=== PATIENT | male | born 2005 | race American Indian/Alaskan Native ===

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

== ENCOUNTER 2023-01-25 18:34 | Emergency (ER) | payer BC, MEDICAID ==
[2023-01-25 19:01] VITALS: BP 141/95; PULSE 75
== END 2023-01-25 19:39 | disposition home or self-care (01) ==
LOC: DL.ED 18:34
DX: S46.911A Strain of unspecified muscle, fascia and tendon at shoulder and upper arm level, right arm, initial encounter (principal); S40.011A Contusion of right shoulder, initial encounter; X50.1XXA Overexertion from prolonged static or awkward postures, initial encounter
CPT/HCPCS: 73030-RT; 99282; 99283

== ENCOUNTER 2024-02-28 17:37 | Emergency (ER) | payer OTHER ==
[2024-02-28 18:04] VITALS: BP 126/78; PULSE 60
[2024-02-28 19:33] LABS: APPEARANCE,URINE CLEAR (CLEAR); BILIRUBIN,URINE NEGATIVE (NEGATIVE); COLOR,URINE YELLOW (YELLOW); GLUCOSE,URINE NEGATIVE (NEGATIVE); KETONES,URINE NEGATIVE (NEGATIVE); LEUKOCYTE ESTERASE,URINE NEGATIVE (NEGATIVE); NITRITE,URINE NEGATIVE (NEGATIVE); OCCULT BLOOD,URINE NEGATIVE (NEGATIVE); PH,URINE 7.5 (5.0-9.0); PROTEIN,URINE NEGATIVE (NEGATIVE); UROBILINOGEN,URINE 0.2 mg/dL (0.2-1.0)
[2024-02-28] MEDS: Sodium Chloride 0.9% 10 ML Syringe FLUSH PRN (19:36)
[2024-02-28 19:43] LABS: BASOPHILS PERCENT AUTO 0.7 % (0.0-1.0); EOSINOPHILS PERCENT AUTO 6.3 % (1.0-3.0); HEMATOCRIT 45.8 % (40.0-54.0); HEMOGLOBIN 15.9 g/dL (14.0-18.0); LYMPHOCYTES PERCENT AUTO 21.9 % (20.5-50.1); MEAN CORPUSCULAR HGB CONC 34.7 g/dL (33.0-35.0); MEAN CORPUSCULAR VOLUME 86.4 fL (80-100); MONOCYTES PERCENT AUTO 9.1 % (2-8); PLATELET COUNT,PLT 242 10^3/uL (150-450); WHITE BLOOD CELL COUNT,WBC 8.1 10^3/uL (5.0-10.0)
[2024-02-28] MEDS: Ketorolac 30 MG/ML SDV IVPUSH ONE (19:44)
[2024-02-28] MEDS: Sodium Chloride 0.9% 1,000 ML IV ONE (19:45)
[2024-02-28 20:11] LABS: A/G RATIO 1.1; ALBUMIN 4.3 g/dL (3.4-5.0); ANION GAP 12.4 mEq/L (7-13); BILIRUBIN TOTAL 0.6 mg/dL (0.2-1.0); BUN/CREATININE RATIO 8.8 (No establ ref range); CALCIUM 9.5 mg/dL (8.5-10.1); CREATININE 1.13 mg/dL (0.70-1.30); EST CRCL DRUG DOSING (CG) 100.88 mL/min; POTASSIUM,K 4.4 mmol/L (3.5-5.1); PROTEIN TOTAL,TP 8.1 g/dL (6.4-8.2)
[2024-02-28] MEDS: Iopamidol 612 MG/ML 100 ML Bottle IVPUSH ONE (22:23)
== END 2024-02-28 23:38 ==
LOC: DL.ED 17:37
DX: M54.2 Cervicalgia (principal); K62.5 Hemorrhage of anus and rectum; Z90.49 Acquired absence of other specified parts of digestive tract; V28.09XA Other motorcycle driver injured in noncollision transport accident in nontraffic accident, initial encounter
CPT/HCPCS: 36415; 70491; 71260; 72125; 74177; 80053; 81003; 82272; 82550; 83605; 83735; 84484; 85025; 85730; 96361; 96374; 99284; 99285; J1885; J7030; Q9967; J3490

== ENCOUNTER 2024-10-02 02:21 | Emergency (ER) | payer OTHER ==
[2024-10-02 02:36] VITALS: PULSE 65
[2024-10-02] MEDS: Bacitracin Oint 1 GM U/D Packet TOP ONE (03:22)
[2024-10-02] MEDS: Ibuprofen 400 MG Tab PO ONE (03:24)
[2024-10-02] MEDS: Diphtheria,Pertussis(Acell),Tetanus Vaccine 0.5 ML Syringe IM ONE (03:24)
[2024-10-02 03:40] VITALS: BP 120/85
== END 2024-10-02 03:35 | disposition home or self-care (01) ==
LOC: DL.ED 02:21
DX: T33.012A Superficial frostbite of left ear, initial encounter (principal); H66.92 Otitis media, unspecified, left ear; Z90.49 Acquired absence of other specified parts of digestive tract; Z23 Encounter for immunization; X31.XXXA Exposure to excessive natural cold, initial encounter
CPT/HCPCS: 90471; 90715; 99283; A9270